=== PATIENT | female | born 1955 | race African-American/Black ===

== ENCOUNTER → 2016-12-02 | Outpatient (CLI) | payer OTHER ==
[2016-12-02 17:51] LABS: ANION GAP 10 (5-19); BLOOD UREA NITROGEN 30 mg/dL (7-20); CALCIUM 9.7 mg/dL (8.4-10.2); CARBON DIOXIDE 27 mmol/L (22-30); CHLORIDE 101 mmol/L (98-107); CREATININE RESULT 2.76 mg/dL (0.52-1.25); GLUCOSE 71 mg/dL (75-110); POTASSIUM 5.1 mmol/L (3.6-5.0); SODIUM 138.3 mmol/L (137-145)
== END ==
LOC: OD 16:30
PROVIDERS: ATTEND Internal Medicine Nephrology
DX: N18.4 Chronic kidney disease, stage 4 (severe) (principal)
CPT/HCPCS: 36415; 80048

== ENCOUNTER → 2017-03-19 | Outpatient (CLI) | payer OTHER ==
[2017-03-19 17:48] LABS: ABSOLUTE EOSINOPHILS # (AUTO) 0.3 10^3/uL (0.0-0.6); ABSOLUTE MONOCYTES (AUTO) 0.5 10^3/uL (0.1-1.4); BASOPHILS % (AUTO) 0.4 % (0-2); EOSINOPHILS % (AUTO) 4.9 % (0-6); HEMATOCRIT 36.3 % (36.0-47.0); HEMOGLOBIN 11.9 g/dL (12.0-15.5); HGB HCT DIFFERENCE -0.6; LYMPHOCYTES % (AUTO) 28.9 % (13-45); MEAN CORPUSCULAR HEMOGLOBIN 28.8 pg (27.0-33.4); MEAN CORPUSCULAR HGB CONC 32.7 g/dL (32.0-36.0); MEAN CORPUSCULAR VOLUME 88 fl (80-97); MONOCYTES % (AUTO) 7.8 % (3-13); RED BLOOD COUNT 4.12 10^6/uL (3.72-5.28); RED CELL DISTRIBUTION WIDTH 13.5 % (11.5-14.0); WHITE BLOOD COUNT 6.8 10^3/uL (4.0-10.5)
[2017-03-19 18:10] LABS: ANION GAP 9 (5-19); BLOOD UREA NITROGEN 33 mg/dL (7-20); CALCIUM 9.3 mg/dL (8.4-10.2); CARBON DIOXIDE 29 mmol/L (22-30); CHLORIDE 100 mmol/L (98-107); CREATININE RESULT 3.21 mg/dL (0.52-1.25); GLUCOSE 61 mg/dL (75-110); PHOSPHORUS 3.7 mg/dL (2.5-4.5); POTASSIUM 4.1 mmol/L (3.6-5.0); SODIUM 138.4 mmol/L (137-145)
[2017-03-21 10:37] LABS: CREATININE URINE 144.8 mg/dL (Not Estab.)
[2017-03-21 12:57] LABS: VITAMIN D 25-HYDROXY 18.2 ng/mL (30.0-100.0)
== END ==
LOC: OD 17:06
PROVIDERS: ATTEND Internal Medicine Nephrology
DX: I12.9 Hypertensive chronic kidney disease with stage 1 through stage 4 chronic kidney disease, or unspecified chronic kidney disease (principal); N18.4 Chronic kidney disease, stage 4 (severe); D63.1 Anemia in chronic kidney disease; N25.81 Secondary hyperparathyroidism of renal origin
CPT/HCPCS: 36415; 80048; 82040; 82043; 82306; 82570; 83970; 84100; 85025

== ENCOUNTER → 2017-12-17 | Outpatient (CLI) | payer OTHER ==
[2017-12-17 17:06] LABS: ABSOLUTE BASOPHILS # (AUTO) 0.1 10^3/uL (0.0-0.2); ABSOLUTE EOSINOPHILS # (AUTO) 0.2 10^3/uL (0.0-0.6); ABSOLUTE MONOCYTES (AUTO) 0.5 10^3/uL (0.1-1.4); ABSOLUTE NEUT (AUTO) 4.6 10^3/uL (1.7-8.2); BASOPHILS % (AUTO) 0.8 % (0-2); HEMATOCRIT 38.1 % (36.0-47.0); HEMOGLOBIN 12.4 g/dL (12.0-15.5); LYMPHOCYTES % (AUTO) 26.7 % (13-45); MEAN CORPUSCULAR HGB CONC 32.4 g/dL (32.0-36.0); MEAN CORPUSCULAR VOLUME 90 fl (80-97); MONOCYTES % (AUTO) 6.8 % (3-13); PLATELET COUNT 238 10^3/uL (150-450); RED BLOOD COUNT 4.26 10^6/uL (3.72-5.28); RED CELL DISTRIBUTION WIDTH 13.8 % (11.5-14.0); SEGMENTED NEUTROPHILS % (AUTO) 62.7 % (42-78); TOTAL CELLS COUNTED % (AUTO) 100 %; WHITE BLOOD COUNT 7.3 10^3/uL (4.0-10.5)
[2017-12-17 17:27] LABS: ALBUMIN 4.7 g/dL (3.5-5.0); ANION GAP 12 (5-19); BLOOD UREA NITROGEN 34 mg/dL (7-20); CALCIUM 9.8 mg/dL (8.4-10.2); CARBON DIOXIDE 24 mmol/L (22-30); CHLORIDE 107 mmol/L (98-107); GLUCOSE 161 mg/dL (75-110); PHOSPHORUS 4.1 mg/dL (2.5-4.5); POTASSIUM 4.4 mmol/L (3.6-5.0)
[2017-12-17 17:44] LABS: APPEARANCE,URINE CLEAR; BILIRUBIN,URINE NEGATIVE (NEGATIVE); COLOR,URINE YELLOW; GLUCOSE, URINE NEGATIVE (NEGATIVE); KETONES,URINE NEGATIVE (NEGATIVE); LEUKOCYTE ESTERASE,URINE NEGATIVE (NEGATIVE); NITRITE,URINE NEGATIVE (NEGATIVE); PROTEIN,URINE 30 mg/dL (NEGATIVE); URINE SPECIFIC GRAVITY 1.015; UROBILINOGEN,URINE NEGATIVE mg/dL (<2.0)
[2017-12-19 12:37] LABS: CREATININE URINE 125.9 mg/dL (Not Estab.); MICROALBUMIN URINE 122.9 ug/mL (Not Estab.)
== END ==
LOC: OD 16:19
PROVIDERS: ATTEND Internal Medicine Nephrology
DX: N18.4 Chronic kidney disease, stage 4 (severe) (principal); D63.1 Anemia in chronic kidney disease; E55.9 Vitamin D deficiency, unspecified; N25.81 Secondary hyperparathyroidism of renal origin
CPT/HCPCS: 36415; 80048; 81001; 82040; 82043; 82306; 82570; 83970; 84100; 85025

== ENCOUNTER 2018-02-14 21:07 | Inpatient (IN) | payer OTHER ==
[~2018-02-14 21:07] MED LIST: IPRATROPIUM/ALBUTEROL 0.5-2.5 MG/3 ML AMPUL NEB SCH
[2018-02-14] MEDS ORDERED: MAGNESIUM SULFATE/D5W 1 GM/100 ML RTUPB IV ONE (21:12)
[2018-02-14] MEDS ORDERED: ALBUTEROL SULFATE 0.083% NEB 2.5 MG/3 ML AMPUL NEB ONE (21:21)
[2018-02-14] MEDS ORDERED: DOXYCYCLINE HYCLATE 100 MG TABLET PO ONE (21:22)
--- NOTE | 2018-02-14 21:23 | ER Document Report ---
ED General - General Chief Complaint: Respiratory Distress Stated Complaint: TROUBLE BREATHING Time Seen by Provider: 02/14/18 21:20 Notes: Patient is a 63-year-old female with a past medical history of COPD, chronic kidney disease, ongoing tobacco abuse who presents with 2 weeks of progressively worsening cough and shortness of breath. She states that she came to the emergency department today because her daughter insisted. She does arrive by EMS. EMS reports when they arrived the patient was saturating 90% on room air and had coarse wheezing in all lung lockett. Patient reports that she has been trying whij-hyx-obigqbm medications without any relief but does note that she had some improvement after receiving nebulizers and steroids from EMS. She has exertion worsens her symptoms. She denies any history of similar symptoms in the past. No known sick contacts. She reports that she has had subjective fever at home but has not recorded a fever. She has not seen her primary care doctor regarding today's concerns. She has never been dialysis dependent in the past. TRAVEL OUTSIDE OF THE [place] IN LAST 30 DAYS: No - Related Data Allergies/Adverse Reactions: No Known Allergies Allergy (Unverified 01/21/11 22:02) Past Medical History - General Information source: Patient, Relative - Social History Smoking Status: Current Every Day Smoker Cigarette use (# per day): Yes - 20 Smoking Education Provided: Yes - Smoking cessation counseling was provided for 4 minutes at the bedside Frequency of alcohol use: None Drug Abuse: None Lives with: Family Family History: Reviewed & Not Pertinent Neurological Medical History: Denies: Hx Seizures Renal/ Medical History: Reports: Hx Renal Insufficiency Past Surgical History: Reports: Hx Oral Surgery - Upper teeth extracted . Denies: Hx Hysterectomy - Immunizations Hx Diphtheria, Pertussis, Tetanus Vaccination: Yes Review of Systems - Review of Systems Notes: Constitutional: Positive for subjective fever HENT: Negative for sore throat. Eyes: Negative for visual changes. Cardiovascular: Negative for chest pain. Respiratory: Positive for shortness of breath. Gastrointestinal: Negative for abdominal pain, vomiting or diarrhea. Genitourinary: Negative for dysuria. Musculoskeletal: Negative for back pain. Skin: Negative for rash. Neurological: Negative for headaches, weakness or numbness. 10 point ROS negative except as marked above and in HPI. Physical Exam - Vital signs Interpretation: Hypoxic, Tachypneic Notes: PHYSICAL EXAMINATION: GENERAL: Appears moderately uncomfortable but in no acute distress. HEAD: Atraumatic, normocephalic. EYES: Pupils equal round and reactive to light, extraocular movements intact, sclera anicteric, conjunctiva are normal. ENT: nares patent, oropharynx clear without exudates. Mildly dry mucous membranes. NECK: Normal range of motion, supple without lymphadenopathy LUNGS: Diminished breath sounds at the bilateral bases. Faint expiratory wheezing in all lung lockett. HEART: Regular rate and rhythm without murmurs ABDOMEN: Soft, nontender, normoactive bowel sounds. No guarding, no rebound. No masses appreciated. EXTREMITIES: Normal range of motion, no pitting or edema. No cyanosis. NEUROLOGICAL: No focal neurological deficits. Moves all extremities spontaneously and on command. PSYCH: Normal mood, normal affect. SKIN: Warm, Dry, normal turgor, no rashes or lesions noted. Course - Re-evaluation Re-evalutation: 02/14/18 21:22 Patient presents with wheezing, coughing, and sputum production, and subjective fevers at home. Patient was 90% on room air when EMS got to her although she has improved to 90-94% on room air after receiving 3 do nebulizers prior to arrival as well as Solu-Medrol. At the time of my assessment the patient has mildly diminished air movement at the bases bilaterally, mild wheezing. She is having active coughing with production of sputum. The remainder of her vitals remain within acceptable limits. Laboratories however demonstrate a marked leukocytosis as well as market worsening of her baseline chronic kidney disease. Renal function appears to be most consistent with prerenal azotemia with associated underlying chronic kidney disease. Dr. Juarez is available for consultation in the morning and I have verified this with the lumber piler operator business support professional. Patient's chest x-ray also shows a left lower lobe pneumonia. Patient was initially given oral doxycycline as I was hopeful that she could be able to be discharged but given her persistent hypoxia as well as marked worsening of her renal function she has been started on IV levofloxacin. Patient is also received 2 g of IV magnesium. I will discuss with the hospitalist for admission. - Laboratory Result Diagrams: 02/14/18 21:10 02/14/18 21:10 Laboratory results interpreted by me: 02/14/18 02/14/18 21:10 21:10 WBC 22.9 H Plt Count 502 H Seg Neuts % (Manual) 85 H Band Neutrophils % 1 L Lymphocytes % (Manual) 9 L Abs Neuts (Manual) 19.7 H Sodium 134.0 L Chloride 89 L BUN 101 H Creatinine 5.22 H Est GFR ( Amer) 10 L Est GFR (Non-Af Amer) 8 L Glucose 176 H - Diagnostic Test Radiology reviewed: Image reviewed, Reports reviewed Radiology results interpreted by me: 02/15/18 01:16 Chest x-ray: Left lower lobe pneumonia and COPD Discharge - Discharge Clinical Impression: Hypoxemia, Shortness of breath Pneumonia Qualifiers: Pneumonia type: due to unspecified organism Laterality: left Lung location: unspecified part of lung Qualified Code(s): J18.9 - Pneumonia, unspecified organism Cpzjl-da-cffustb kidney injury Qualifiers: Acute renal failure type: unspecified Chronic kidney disease stage: stage 4 ( severe) Qualified Code(s): N17.9 - Acute kidney failure, unspecified; N18.4 - Chronic kidney disease, stage 4 (severe); N18.4 - Chronic kidney disease, stage 4 (severe); N18.4 - Chronic kidney disease, stage 4 (severe); N18.4 - Chronic kidney disease, stage 4 (severe) Condition: Fair Disposition: ADMITTED INPATIENT Admitting Provider: Hospitalist Unit Admitted: Medical Floor
[2018-02-14 21:27] LABS: HEMATOCRIT 42.1 % (36.0-47.0); MEAN CORPUSCULAR HEMOGLOBIN 28.4 pg (27.0-33.4); MEAN CORPUSCULAR HGB CONC 33.2 g/dL (32.0-36.0); MEAN CORPUSCULAR VOLUME 86 fl (80-97); PLATELET COUNT 502 10^3/uL (150-450); RED BLOOD COUNT 4.92 10^6/uL (3.72-5.28); WHITE BLOOD COUNT 22.9 10^3/uL (4.0-10.5)
[2018-02-14 21:29] LABS: VENOUS BLOOD BASE EXCESS 2.8 mmol/L; VENOUS BLOOD HCO3 28.6 mmol/L (20-32); VENOUS BLOOD PCO2 48.3 mmHg (35-63); VENOUS BLOOD PH 7.39 (7.30-7.42)
[2018-02-14] MEDS: MAGNESIUM SULFATE/D5W 1 GM/100 ML RTUPB IV SCH ×3 (21:39→23:24)
[2018-02-14 21:44] LABS: ANION GAP 15 (5-19); BLOOD UREA NITROGEN 101 mg/dL (7-20); CALCIUM 9.7 mg/dL (8.4-10.2); CARBON DIOXIDE 30 mmol/L (22-30); CHLORIDE 89 mmol/L (98-107); GLUCOSE 176 mg/dL (75-110); POTASSIUM 4.5 mmol/L (3.6-5.0)
[2018-02-14 21:50] LABS: ABSOLUTE LYMPHOCYTES# (MANUAL) 2.1 10^3/uL (0.5-4.7); ABSOLUTE MONOCYTES # (MANUAL) 0.9 10^3/uL (0.1-1.4); ABSOLUTE NEUTROPHILS# (MANUAL) 19.7 10^3/uL (1.7-8.2); BAND NEUTROPHILS % (MANUAL) 1 % (3-5); BASOPHILS % (MANUAL) 0 % (0-2); EOSINOPHILS % (MANUAL) 1 % (0-6); LYMPHOCYTES % (MANUAL) 9 % (13-45); MONOCYTES % (MANUAL) 4 % (3-13); PLATELET COMMENT INCREASED; SEGMENTED NEUTROPHILS % (MAN) 85 % (42-78); TOTAL CELLS COUNTED 100
[2018-02-14 21:52] LABS: OVALOCYTES SLIGHT; POIKILOCYTOSIS SLIGHT; TOXIC GRANULATION SLIGHT; TOXIC VACUOLATION PRESENT
--- NOTE | 2018-02-14 22:15 | RADIOLOGY REPORT (SQ) ---
EXAM DESCRIPTION: CHEST SINGLE VIEW COMPLETED DATE/TIME: 02/14/2018 10:07 pm REASON FOR STUDY: cough, sob COMPARISON: 2012. NUMBER OF VIEWS: One view. TECHNIQUE: Single frontal radiographic view of the chest acquired. LIMITATIONS: None. FINDINGS: LUNGS AND PLEURA: Hyperinflated with flattening of the diaphragm. Probable scarring in th e lung bases. Changes consistent with COPD. Patchy area of infiltrate in the left mid lung zone rita picious for pneumonia. MEDIASTINUM AND HILAR STRUCTURES: No masses. Contour normal. HEART AND VASCULAR STRUCTURES: Heart normal in size. Normal vasculature. BONES: No acute findings. HARDWARE: None in the chest. OTHER: No other significant finding. IMPRESSION: 1. COPD. 2. Left pneumonia. Surveillance radiographs to document clearance with kwame tment recommended. TECHNICAL DOCUMENTATION: JOB ID: [id number] [employer]- All Rights Reserved Reading location - IP/workstation name: [email or web address]
[2018-02-14] MEDS ORDERED: LEVOFLOXACIN 750 MG/D5W RTU 750 MG/150 ML RTUPB IV ONE (23:06)
[2018-02-14] MEDS ORDERED: NORMAL SALINE 1000 ML 1,000 ML IV ONE (23:06)
[2018-02-14] MEDS ORDERED: ACETAMINOPHEN 325 MG TABLET PO PRN (23:39)
[2018-02-14] MEDS ORDERED: NORMAL SALINE 1000 ML 1,000 ML IV PRN (23:43)
--- NOTE | 2018-02-15 00:09 | PDOC H&P ---
History of Present Illness History of Present Illness: NAIDA MARQUEZ is a 63 year old female patient who has been in her usual baseline state of up until 7 days when she started to have shortness of place, wheezing and cough productive of initially yellowish sputum. Patient instead of seeking medical help, has been medicating herself with over-the- counter medications to no avail. Patient is a known case of CKD and her creatinine was 2.86 in December of this year but today it jumped up to 5.22 and her BUN is 101. She has also white cell count of 23,000 and chest x-ray reported as patchy area of infiltrate left midlung zone suspicious for pneumonia. Patient brought by EMS who found her to have O2 saturation of 90% on room air and after she got Solu-Medrol and DuoNeb at all saturation increased to 94%. She denies chest pain, palpitation, nausea, vomiting, abdominal pain, diarrhea or urinary complaints. No headache, dizziness, change in visual status or any seizure activity. Past Medical History Cardiac Medical History: Reports: Hypertension Neurological Medical History: Denies: Seizures Renal/ History Note: CKD Past Surgical History Past Surgical History: Reports: None Social History Smoking Status: Current Every Day Smoker Frequency of Alcohol Use: None Drugs: None - Advance Directive Resuscitation Status: Full Code Family History Family History: Reviewed & Not Pertinent, DM, Hypertension Parental Family History Reviewed: Yes Children Family History Reviewed: Yes Sibling(s) Family History Reviewed.: Yes Medication/Allergy Home Medications: Atenolol 100 mg PO DAILY 10/09/13 Hydrocodone/Chlorphen P-Stirex [Tussionex Pennkinetic Susp] 5 ml PO BID #250 ml 10/09/13 Losartan/Hydrochlorothiazide [Hyzaar 50-12.5 Tablet] 1 each PO DAILY 10/09/13 Ondansetron [Zofran Odt 4 mg Tablet] 1 tab PO Q6H #15 tab.rapdis 10/09/13 Penicillin V Potassium [Penicillin Vk 500 mg Tablet] 500 mg PO QID 10/09/13 Promethazine HCl 25 mg PO Q6H PRN 10/09/13 Promethazine HCl [Phenergan 25 mg Tablet] 25 mg PO Q6H PRN #15 tablet 10/09/13 Allergies/Adverse Reactions: No Known Allergies Allergy (Unverified 01/21/11 22:02) Review of Systems Constitutional: PRESENT: as per HPI Ears: PRESENT: as per HPI Cardiovascular: PRESENT: as per HPI Respiratory: PRESENT: as per HPI Gastrointestinal: PRESENT: as per HPI Neurological: PRESENT: as per HPI Results Laboratory Results: 02/14/18 21:10 02/14/18 21:10 02/14/18 02/14/18 02/14/18 21:10 21:10 21:10 WBC 22.9 H RBC 4.92 Hgb 14.0 Hct 42.1 MCV 86 MCH 28.4 MCHC 33.2 RDW 13.0 Plt Count 502 H Seg Neutrophils % Not Reportable Lymphocytes % Not Reportable Monocytes % Not Reportable Eosinophils % Not Reportable Basophils % Not Reportable Absolute Neutrophils Not Reportable Absolute Lymphocytes Not Reportable Absolute Monocytes Not Reportable Absolute Eosinophils Not Reportable Absolute Basophils Not Reportable VBG pH 7.39 VBG pCO2 48.3 VBG HCO3 28.6 VBG Base Excess 2.8 Sodium 134.0 L Potassium 4.5 Chloride 89 L Carbon Dioxide 30 Anion Gap 15 BUN 101 H Creatinine 5.22 H Est GFR ( Amer) 10 L Est GFR (Non-Af Amer) 8 L Glucose 176 H Calcium 9.7 Impressions: Chest X-Ray 02/14/18 21:21 IMPRESSION: 1. COPD. 2. Left pneumonia. Surveillance radiographs to document clearance with treatment recommended. Assessment & Plan - Diagnosis (1) Jlgye-do-gtowkkz kidney injury Qualifiers: Chronic kidney disease stage: stage 4 (severe) Is this a current diagnosis for this admission?: Yes Plan: We will cautiously hydrate her and consult nephrology to be seen tomorrow morning. (2) Pneumonia Qualifiers: Pneumonia type: due to unspecified organism Laterality: left Is this a current diagnosis for this admission?: Yes Plan: Patient has been started on Rocephin and doxycycline (3) Hypertension Qualifiers: Hypertension type: essential hypertension Qualified Code(s): I10 - Essential (primary) hypertension Is this a current diagnosis for this admission?: Yes Plan: Continue home medications - Time Time Spent: 30 to 50 Minutes - Inpatient Certification Medical Necessity: Need For IV Fluids, Need for IV Antibiotics
[2018-02-15] MEDS: IPRATROPIUM/ALBUTEROL 0.5-2.5 MG/3 ML AMPUL NEB SCH ×6 (01:29→21:01)
[2018-02-15] MEDS: METHYLPREDNISOLONE INJ 40 MG/1 ML SDV IV SCH ×2 (05:27)
[2018-02-15] MEDS: HEPARIN SOD (PORCINE) 5,000 UNIT/ML 1 ML SYRINGE SUBCUT SCH ×3 (05:28→21:16)
[2018-02-15 06:16] LABS: HEMOGLOBIN 12.2 g/dL (12.0-15.5); MEAN CORPUSCULAR HEMOGLOBIN 28.4 pg (27.0-33.4); MEAN CORPUSCULAR HGB CONC 32.9 g/dL (32.0-36.0); MEAN CORPUSCULAR VOLUME 87 fl (80-97); PLATELET COUNT 344 10^3/uL (150-450); RED BLOOD COUNT 4.28 10^6/uL (3.72-5.28); RED CELL DISTRIBUTION WIDTH 12.9 % (11.5-14.0); WHITE BLOOD COUNT 21.7 10^3/uL (4.0-10.5)
[2018-02-15 06:28] LABS: BLOOD UREA NITROGEN 96 mg/dL (7-20); CALCIUM 9.1 mg/dL (8.4-10.2); PHOSPHORUS 4.3 mg/dL (2.5-4.5); POTASSIUM 4.4 mmol/L (3.6-5.0)
[2018-02-15 06:33] LABS: ANION GAP 19 (5-19); CARBON DIOXIDE 21 mmol/L (22-30); CHLORIDE 90 mmol/L (98-107); SODIUM 130.4 mmol/L (137-145)
[2018-02-15 06:39] LABS: ABSOLUTE LYMPHOCYTES# (MANUAL) 0.4 10^3/uL (0.5-4.7); ABSOLUTE NEUTROPHILS# (MANUAL) 21.3 10^3/uL (1.7-8.2); BAND NEUTROPHILS % (MANUAL) 1 % (3-5); BASOPHILS % (MANUAL) 0 % (0-2); EOSINOPHILS % (MANUAL) 0 % (0-6); LYMPHOCYTES % (MANUAL) 2 % (13-45); MONOCYTES % (MANUAL) 0 % (3-13); SEGMENTED NEUTROPHILS % (MAN) 97 % (42-78); TOTAL CELLS COUNTED 100
[2018-02-15 06:41] LABS: OVALOCYTES SLIGHT; PLATELET COMMENT ADEQUATE; POIKILOCYTOSIS SLIGHT; TEAR DROP CELLS SLIGHT
[2018-02-15 06:46] LABS: GLUCOSE 503 mg/dL (75-110)
[2018-02-15] MEDS: CEFTRIAXONE SODIUM 1,000 MG in DEXTROSE 5%-WATER 50 ML IV SCH (09:49)
[2018-02-15] MEDS ORDERED: DEXTROSE 50%-WATER 25 GM/50 ML DISP.SYRIN IV PRN ×2 (09:51)
[2018-02-15] MEDS ORDERED: GLUCAGON,HUMAN RECOMB 1 MG INJ IM PRN (09:51)
[2018-02-15] MEDS ORDERED: DEXTROSE 40% GEL 15 GM TUBE PO PRN ×2 (09:51)
[2018-02-15] MEDS ORDERED: ALBUTEROL SULFATE 0.083% NEB 2.5 MG/3 ML AMPUL NEB PRN (09:53)
[2018-02-15] MEDS ORDERED: ONDANSETRON HCL INJ/PF 4 MG/2 ML SDV IV PRN (09:54)
[2018-02-15] MEDS ORDERED: NORMAL SALINE 1000 ML 1,000 ML IV PRN (09:54)
[2018-02-15] MEDS ORDERED: CEFTRIAXONE 1 GM/D5W RTU 1 GM/50 ML RTUPB IV SCH (10:00)
[2018-02-15] MEDS: DOXYCYCLINE HYCLATE 100 MG in DEXTROSE 5%-WATER 250 ML IV SCH ×2 (11:01→21:09)
[2018-02-15] MEDS: NICOTINE 14 MG/24 HR PATCH.TD24 TD SCH (11:02)
--- NOTE | 2018-02-15 13:20 | PDOC PROGRESS REPORT ---
Subjective Progress Note for:: 02/15/18 Subjective:: Patient refers that she is doing a lot better when compared to admission. Review of system All organ systems evaluated and negative except as in subjective All significant diagnostics and laboratories have been reviewed Reason For Visit: ACUTE ON CHRONIC KIDNEY FAILURE,PNEUMONIA Physical Exam Vital Signs: Temp Pulse Resp BP Pulse Ox 98.3 F 72 18 109/66 98 02/15/18 07:22 02/15/18 08:06 02/15/18 08:06 02/15/18 07:22 02/15/18 08:06 Intake & Output 02/14/18 02/15/18 02/16/18 06:59 06:59 06:59 Intake Total 125 Output Total 0 Balance 125 Weight 50.1 kg General appearance: PRESENT: no acute distress, cooperative, thin Head exam: PRESENT: atraumatic, normocephalic Eye exam: PRESENT: conjunctiva pink, EOMI, PERRLA Ear exam: PRESENT: normal external ear exam Mouth exam: PRESENT: moist Neck exam: PRESENT: full ROM. ABSENT: JVD, lymphadenopathy, tenderness Respiratory exam: PRESENT: crackles Cardiovascular exam: PRESENT: RRR. ABSENT: diastolic murmur, systolic murmur Vascular exam: PRESENT: normal capillary refill GI/Abdominal exam: PRESENT: normal bowel sounds, soft. ABSENT: tenderness Extremities exam: PRESENT: full ROM. ABSENT: pedal edema Musculoskeletal exam: PRESENT: ambulatory Neurological exam: PRESENT: alert, awake, oriented to person, oriented to place , oriented to time, oriented to situation, CN II-XII grossly intact Skin exam: PRESENT: intact, normal color Results Laboratory Results: 02/15/18 05:40 02/15/18 05:40 02/15/18 02/15/18 05:40 05:40 WBC 21.7 H RBC 4.28 Hgb 12.2 Hct 37.0 MCV 87 MCH 28.4 MCHC 32.9 RDW 12.9 Plt Count 344 Seg Neutrophils % Not Reportable Lymphocytes % Not Reportable Monocytes % Not Reportable Eosinophils % Not Reportable Basophils % Not Reportable Absolute Neutrophils Not Reportable Absolute Lymphocytes Not Reportable Absolute Monocytes Not Reportable Absolute Eosinophils Not Reportable Absolute Basophils Not Reportable Sodium 130.4 L Potassium 4.4 Chloride 90 L Carbon Dioxide 21 L Anion Gap 19 BUN 96 H Creatinine 4.61 H Est GFR ( Amer) 12 L Est GFR (Non-Af Amer) 10 L Glucose 503 H* Calcium 9.1 Phosphorus 4.3 Magnesium 3.1 H Impressions: Chest X-Ray 02/14/18 21:21 IMPRESSION: 1. COPD. 2. Left pneumonia. Surveillance radiographs to document clearance with treatment recommended. Assessment & Plan - Diagnosis (1) Pneumonia Qualifiers: Pneumonia type: due to unspecified organism Laterality: left Lung location: lower lobe of lung Qualified Code(s): J18.1 - Lobar pneumonia, unspecified organism Is this a current diagnosis for this admission?: Yes Plan: Continue present management (2) Gqeub-ci-flvqtgd kidney injury Qualifiers: Acute renal failure type: unspecified Chronic kidney disease stage: stage 4 (severe) Qualified Code(s): N17.9 - Acute kidney failure, unspecified; N18.4 - Chronic kidney disease, stage 4 (severe); N18.4 - Chronic kidney disease , stage 4 (severe); N18.4 - Chronic kidney disease, stage 4 (severe); N18.4 - Chronic kidney disease, stage 4 (severe) Is this a current diagnosis for this admission?: Yes Plan: Continue IV fluids. Order renal sonogram (3) COPD (chronic obstructive pulmonary disease) Is this a current diagnosis for this admission?: Yes Plan: Order DuoNeb's, Mucinex and discontinue steroids due to hyperglycemia (4) Tobacco abuse Is this a current diagnosis for this admission?: Yes Plan: Order nicotine patch. Patient educated about quitting (5) Hyperglycemia Is this a current diagnosis for this admission?: Yes Plan: Discontinue IV steroids. Order hemoglobin A1c in a.m.. To place patient on Humalog sliding scale with bedside glucose before meals and at bedtime - Time Time Spent with patient: 15-24 minutes Medications reviewed and adjusted accordingly: Yes Anticipated discharge: Home Within: within 72 hours - Inpatient Certification Based on my medical assessment, after consideration of the patient's comorbidities, presenting symptoms, or acuity I expect that the services needed warrant INPATIENT care.: Yes I certify that my determination is in accordance with my understanding of Medicare's requirements for reasonable and necessary INPATIENT services [42 CFR 412.3e].: Yes Medical Necessity: Need Close Monitoring Due to Risk of Patient Decompensation, Need For IV Fluids, Need for Nebulizer Therapy and Monitoring of Response
[2018-02-15] MEDS: ACETAMINOPHEN 325 MG TABLET PO PRN ×2 (14:47→22:37)
[2018-02-15] MEDS: INSULIN LISPRO 100 UNIT/ML 3 ML VIAL SUBCUT PRN ×2 (15:25→18:32)
--- NOTE | 2018-02-15 17:41 | PDOC CONSULTATION ---
Consultation Consult Date: 02/15/18 Attending physician:: MYESHA CHRISTINA Consult reason:: I was asked to see the patient because of acute worsening of kidney function in a patient with known chronic kidney disease. History of Present Illness Admission Date/PCP: 02/15/18 01:25 History of Present Illness: NAIDA MARQUEZ is a 63 year old female known to me with history of chronic kidney disease stage IV secondary to hypertensive nephrosclerosis, hypertension , and vitamin D deficiency who presented yesterday because of 1-2 week history of cough productive of yellow phlegm shortness of breath and wheezing. Patient said that she just retired on February 07 and while fixing her custodial papers couple weeks ago she just started not feeling good and he started to have the above symptoms. She said she feels happened cold and has some chills but not sure if she has had fever. Her oral intake was admittedly decrease and she admits not eating solid food and not drinking much probably less than 30 ounces a day. For the past 3 days she also has some nausea and vomiting but denies any diarrhea and her abdominal pain. Last night her daughter brought her to the emergency room. In the emergency room she was found to have elevated BUN of 109 and a creatinine of 5.22. Chest x-ray shows findings showing possible pneumonia. She was given IV fluid hydration for a total of 2 L and is currently still receiving normal saline at 150 mL an hour. She also received antibiotics with IV Levaquin and currently now on IV doxycycline. He was also given some doses of Solu-Medrol which made her blood sugar go up to 503. Patient is never known to be diabetic. Her blood pressure is relatively low compared to her usual baseline blood pressures which most of the time can actually be elevated. Patient denies any other problems with urination and did not notice her urine output to be declining. Today her BUN is better at 96 and creatinine is slightly lower at 4.61 with estimated GFR of throughout. Her baseline BUN is been in the 30s and her baseline creatinine is anywhere between 2.5-2.8 for the last 6 months at least with estimated GFR of 20-21. Currently she is still coughing and not feeling good although a little bit better than when she came in. She is eating a little bit but still has no appetite. She claims that she is making good amount of urine. 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 Lives with: Family Smoking Status: Current Every Day Smoker Frequency of Alcohol Use: None Hx Recreational Drug Use: No Drugs: None Hx Prescription Drug Abuse: No - Advance Directive Resuscitation Status: Full Code Family History Family History: DM - On, Hypertension - Mother, brother, sister, Other - Leukemia in her maternal grandmother Parental Family History Reviewed: Yes Children Family History Reviewed: NA Sibling(s) Family History Reviewed.: Yes Medication/Allergy Home Medications: Aspirin [Aspirin 325 mg Tablet] 325 mg PO DAILY@49902/15/18 Atenolol [Tenormin 100 mg Tablet] 100 mg PO DAILY@49902/15/18 Ergocalciferol (Vitamin D2) [Drisdol 50,000 unit (1.25MG) Capsule] 50,000 unit PO SA@0800 02/15/18 Losartan/Hydrochlorothiazide [Hyzaar 100-12.5 Tablet] 1 tab PO DAILY@499 Allergies/Adverse Reactions: No Known Allergies Allergy (Unverified 01/21/11 22:02) Review of Systems All systems: reviewed and no additional remarkable complaints except as stated Review of Systems: Constitutional: ABSENT: Fever(s), headache(s), weight gain, weight loss; admits feeling weak, and admits chills Eyes: ABSENT: visual disturbances Ears: ABSENT: hearing changes Cardiovascular: ABSENT: chest pain, dyspnea on exertion, edema, orthropnea, palpitations Respiratory: ABSENT: Hemoptysis; admits productive cough, wheezing and shortness of breath Gastrointestinal: ABSENT: abdominal pain, constipation, diarrhea, hematemesis, hematochezia; admits nausea, vomiting Genitourinary: ABSENT: dysuria, hematuria Musculoskeletal: ABSENT: joint swelling Integumentary: ABSENT: rash, wounds Neurological: ABSENT: abnormal gait, abnormal speech, confusion, dizziness, focal weakness, numbness, syncope Psychiatric: ABSENT: anxiety, depression Endocrine: ABSENT: cold intolerance, heat intolerance, polydipsia, polyuria Hematologic/Lymphatic: ABSENT: easy bleeding, easy bruising, lymphadenopathy Physical Exam Vital Signs: Temp Pulse Resp BP Pulse Ox 98.0 F 64 18 118/70 95 02/15/18 16:27 02/15/18 16:27 02/15/18 16:19 02/15/18 16:27 02/15/18 16:27 Intake & Output 02/14/18 02/15/18 02/16/18 06:59 06:59 06:59 Intake Total 125 250 Output Total 0 Balance 125 250 Weight 50.1 kg Exam: General appearance: no acute distress, cooperative, well-developed, well- nourished Head exam: PRESENT: atraumatic, normocephalic Eye exam: PRESENT: Conjunctiva [place], EOMI, PERRLA. ABSENT: conjunctival injection, scleral icterus Mouth exam: PRESENT: moist, neck supple, tongue midline Neck exam: PRESENT: full ROM. ABSENT: carotid bruit, JVD, lymphadenopathy, thyromegaly Respiratory exam: PRESENT: She has rhonchi to auscultation bilaterally. Positive bibasilar crackles ABSENT: Stridor, wheezes Cardiovascular exam: PRESENT: RRR, +S1, +S2. ABSENT: systolic murmur Pulses: PRESENT: normal radial pulses, normal dorsalis pedis pulses GI/Abdominal exam: PRESENT: normal bowel sounds, soft. ABSENT: guarding, mass, tenderness Rectal exam: deferred Extremities exam: PRESENT: full ROM. ABSENT: calf tenderness, pedal edema Musculoskeletal: PRESENT: full ROM. ABSENT: deformity Neurological exam: PRESENT: alert, Awake, Oriented to person, Oriented to place , Oriented to time, reflexes normal, CN II-XII grossly intact. ABSENT: motor sensory deficit Psychiatric exam: PRESENT: appropriate affect, normal mood. ABSENT: homicidal ideation, suicidal ideation Skin exam: PRESENT: intact, dry, warm. ABSENT: rash Results Laboratory Results: 02/15/18 05:40 02/15/18 05:40 02/15/18 02/15/18 05:40 05:40 WBC 21.7 H RBC 4.28 Hgb 12.2 Hct 37.0 MCV 87 MCH 28.4 MCHC 32.9 RDW 12.9 Plt Count 344 Seg Neutrophils % Not Reportable Lymphocytes % Not Reportable Monocytes % Not Reportable Eosinophils % Not Reportable Basophils % Not Reportable Absolute Neutrophils Not Reportable Absolute Lymphocytes Not Reportable Absolute Monocytes Not Reportable Absolute Eosinophils Not Reportable Absolute Basophils Not Reportable Sodium 130.4 L Potassium 4.4 Chloride 90 L Carbon Dioxide 21 L Anion Gap 19 BUN 96 H Creatinine 4.61 H Est GFR ( Amer) 12 L Est GFR (Non-Af Amer) 10 L Glucose 503 H* Calcium 9.1 Phosphorus 4.3 Magnesium 3.1 H Impressions: Chest X-Ray 02/14/18 21:21 IMPRESSION: 1. COPD. 2. Left pneumonia. Surveillance radiographs to document clearance with treatment recommended. Assessment & Plan - Diagnosis (1) [id number] kidney injury Qualifiers: Acute renal failure type: unspecified Chronic kidney disease stage: stage 4 (severe) Qualified Code(s): N17.9 - Acute kidney failure, unspecified; N18.4 - Chronic kidney disease, stage 4 (severe); N18.4 - Chronic kidney disease , stage 4 (severe); N18.4 - Chronic kidney disease, stage 4 (severe); N18.4 - Chronic kidney disease, stage 4 (severe) Is this a current diagnosis for this admission?: Yes Plan: This most likely secondary to acute prerenal azotemia secondary to poor oral intake with dehydration for 1-2 weeks. Kidney function seems to be slowly improving with IV fluid hydration. Patient is nonoliguric. Continue to monitor kidney function daily. Avoid nephrotoxic medications and adjust antibiotics according to kidney function. Kidney ultrasound was ordered and was pending. I will check urinalysis and intake and output. (2) Acute prerenal azotemia Is this a current diagnosis for this admission?: Yes (3) Dehydration Is this a current diagnosis for this admission?: Yes Plan: Continue current IV fluid hydration. (4) Hypertension Qualifiers: Hypertension type: essential hypertension Qualified Code(s): I10 - Essential (primary) hypertension Is this a current diagnosis for this admission?: Yes Plan: Patient's baseline blood pressure usually goes up beyond the systolic blood pressure of 140 and 150s on her usual state of health so her current blood pressure is relatively low for her. Agree with holding her blood pressure medications but I will order it anyway just in case her blood pressure starts to go up. I wrote parameters and went to give her blood pressure medications. I also instructed the patient not to take her medications on her own because she did not today. Discuss the negative consequences in her kidney function if her blood pressure goes down too low and she understood. (5) Pneumonia Qualifiers: Pneumonia type: due to unspecified organism Laterality: left Lung location: lower lobe of lung Qualified Code(s): J18.1 - Lobar pneumonia, unspecified organism Is this a current diagnosis for this admission?: Yes (6) Hyponatremia Is this a current diagnosis for this admission?: Yes Plan: Be due to volume depletion. Continue normal saline. (7) Hypermagnesemia Is this a current diagnosis for this admission?: Yes Plan: Patient was given IV magnesium in the emergency room. This could be also due to her acute worsening of kidney function. (8) Hyperglycemia Is this a current diagnosis for this admission?: Yes Plan: Possibly due to IV Solu-Medrol. Patient has not been known to be diabetic in the past. - Notes Notes: Thank you very much for this consultation. I will follow the patient with you. - Time Time Spent: Greater than 70 Minutes
[2018-02-15 19:00] LABS: APPEARANCE,URINE CLEAR; BILIRUBIN,URINE NEGATIVE (NEGATIVE); COLOR,URINE STRAW; GLUCOSE, URINE >=500 mg/dL (NEGATIVE); KETONES,URINE NEGATIVE (NEGATIVE); LEUKOCYTE ESTERASE,URINE NEGATIVE (NEGATIVE); NITRITE,URINE NEGATIVE (NEGATIVE); PROTEIN,URINE NEGATIVE (NEGATIVE); UROBILINOGEN,URINE NEGATIVE mg/dL (<2.0)
--- NOTE | 2018-02-15 21:08 | RADIOLOGY REPORT (SQ) ---
EXAM DESCRIPTION: [employer] COMPLETED DATE/TIME: 02/15/2018 8:54 pm REASON FOR STUDY: acute on chronic renal failure COMPARISON: 04/09/2011 TECHNIQUE: Dynamic and static grayscale images acquired of the kidneys and bladder and recorded on P ACS. Additional selected color Doppler and spectral images recorded. LIMITATIONS: None. FINDINGS: RIGHT KIDNEY: 6.4 cm. Increased cortical echogenicity. No solid or suspicious masses. No hydronephrosis. No calcifications. LEFT KIDNEY: 8.1 cm. Increased cortical echogenicity. No solid or suspicious masses. No hydron ephrosis. No calcifications. BLADDER: Not visualized. OTHER: No other significant finding. IMPRESSION: CHRONIC MEDICAL RENAL DISEASE. NO HYDRONEPHROSIS. TECHNICAL DOCUMENTATION: JOB ID: [id number] [employer]- All Rights Reserved Reading location - IP/workstation name: [email or web address]
[2018-02-15] MEDS: GUAIFENESIN 600 MG TABLET.SA PO SCH (21:16)
[2018-02-15] MEDS: ZOLPIDEM TARTRATE 5 MG TABLET PO PRN (22:36)
[2018-02-16] MEDS: IPRATROPIUM/ALBUTEROL 0.5-2.5 MG/3 ML AMPUL NEB SCH ×6 (00:34→20:26)
[2018-02-16] MEDS: INSULIN LISPRO 100 UNIT/ML 3 ML VIAL SUBCUT PRN ×3 (03:21→22:36)
[2018-02-16] MEDS: ASPIRIN 325 MG TABLET PO SCH (04:57)
[2018-02-16] MEDS: HEPARIN SOD (PORCINE) 5,000 UNIT/ML 1 ML SYRINGE SUBCUT SCH ×3 (04:58→22:34)
[2018-02-16] MEDS ORDERED: (PENDING PHARMACY ID) (Atenolol [Tenormin 100 Mg Tablet] 100 MG) PO SCH (05:00)
[2018-02-16] MEDS ORDERED: LOSARTAN POTASSIUM 50 MG TABLET PO SCH (05:00)
[2018-02-16] MEDS ORDERED: HYDROCHLOROTHIAZIDE 12.5 MG CAPSULE PO SCH (05:00)
[2018-02-16] MEDS ORDERED: ATENOLOL 50 MG TABLET PO SCH (05:00)
[2018-02-16] MEDS ORDERED: (PENDING PHARMACY ID) (Losartan/Hydrochlorothiazide [Hyzaar 100-12.5 Tablet] 1 TAB) PO SCH (05:00)
[2018-02-16 05:16] LABS: HEMATOCRIT 32.3 % (36.0-47.0); HEMOGLOBIN 10.5 g/dL (12.0-15.5); MEAN CORPUSCULAR HGB CONC 32.5 g/dL (32.0-36.0); MEAN CORPUSCULAR VOLUME 86 fl (80-97); PLATELET COUNT 384 10^3/uL (150-450); RED BLOOD COUNT 3.75 10^6/uL (3.72-5.28); RED CELL DISTRIBUTION WIDTH 12.5 % (11.5-14.0); WHITE BLOOD COUNT 25.5 10^3/uL (4.0-10.5)
[2018-02-16 05:26] LABS: ANION GAP 12 (5-19); BLOOD UREA NITROGEN 81 mg/dL (7-20); CALCIUM 9.2 mg/dL (8.4-10.2); CARBON DIOXIDE 24 mmol/L (22-30); CHLORIDE 100 mmol/L (98-107); GLUCOSE 220 mg/dL (75-110); PHOSPHORUS 3.5 mg/dL (2.5-4.5); POTASSIUM 4.1 mmol/L (3.6-5.0)
[2018-02-16 05:47] LABS: ABSOLUTE LYMPHOCYTES# (MANUAL) 0.5 10^3/uL (0.5-4.7); ABSOLUTE MONOCYTES # (MANUAL) 1.3 10^3/uL (0.1-1.4); ABSOLUTE NEUTROPHILS# (MANUAL) 23.7 10^3/uL (1.7-8.2); BASOPHILS % (MANUAL) 0 % (0-2); EOSINOPHILS % (MANUAL) 0 % (0-6); LYMPHOCYTES % (MANUAL) 2 % (13-45); MONOCYTES % (MANUAL) 5 % (3-13); SEGMENTED NEUTROPHILS % (MAN) 93 % (42-78); TOTAL CELLS COUNTED 100
[2018-02-16 05:48] LABS: OVALOCYTES SLIGHT; PLATELET COMMENT ADEQUATE; POIKILOCYTOSIS SLIGHT; TOXIC GRANULATION SLIGHT
[2018-02-16] MEDS: GUAIFENESIN 600 MG TABLET.SA PO SCH ×2 (08:57→22:33)
[2018-02-16] MEDS: ACETAMINOPHEN 325 MG TABLET PO PRN ×2 (08:57→13:06)
[2018-02-16] MEDS: NICOTINE 14 MG/24 HR PATCH.TD24 TD SCH (08:58)
[2018-02-16] MEDS: CEFTRIAXONE SODIUM 1,000 MG in DEXTROSE 5%-WATER 50 ML IV SCH (09:01)
[2018-02-16] MEDS: DOXYCYCLINE HYCLATE 100 MG in DEXTROSE 5%-WATER 250 ML IV SCH (09:02)
[2018-02-16] MEDS: NORMAL SALINE 1000 ML 1,000 ML IV PRN ×2 (09:04→22:28)
--- NOTE | 2018-02-16 12:20 | PDOC PROGRESS REPORT ---
Subjective Progress Note for:: 02/16/18 Subjective:: Patient refers that she is doing a lot better when compared to admission. Patient informed about the diagnosis of diabetes and COPD. Again educated about quitting smoking. Review of system All organ systems evaluated and negative except as in subjective All significant diagnostics and laboratories have been reviewed Reason For Visit: ACUTE ON CHRONIC KIDNEY FAILURE,PNEUMONIA Physical Exam Vital Signs: Temp Pulse Resp BP Pulse Ox 98.1 F 76 18 128/59 H 96 02/16/18 03:12 02/16/18 03:12 02/16/18 03:12 02/16/18 03:12 02/16/18 03:12 Intake & Output 02/15/18 02/16/18 02/17/18 06:59 06:59 06:59 Intake Total 125 4400 Output Total 0 800 Balance 125 3600 Weight 50.1 kg 52.3 kg General appearance: PRESENT: no acute distress, cooperative, thin Head exam: PRESENT: atraumatic, normocephalic Eye exam: PRESENT: conjunctiva pink, EOMI, PERRLA Ear exam: PRESENT: normal external ear exam Mouth exam: PRESENT: moist Neck exam: PRESENT: full ROM. ABSENT: JVD, lymphadenopathy, tenderness Respiratory exam: PRESENT: crackles Cardiovascular exam: PRESENT: RRR. ABSENT: diastolic murmur, systolic murmur GI/Abdominal exam: PRESENT: normal bowel sounds, soft. ABSENT: tenderness Extremities exam: PRESENT: full ROM. ABSENT: pedal edema Musculoskeletal exam: PRESENT: ambulatory Neurological exam: PRESENT: alert, awake, oriented to person, oriented to place , oriented to time, oriented to situation, CN II-XII grossly intact Skin exam: PRESENT: intact, normal color Results Laboratory Results: 02/16/18 04:21 02/16/18 04:21 02/15/18 02/16/18 02/16/18 18:40 04:21 04:21 WBC 25.5 H RBC 3.75 Hgb 10.5 L Hct 32.3 L MCV 86 MCH 28.0 MCHC 32.5 RDW 12.5 Plt Count 384 Seg Neutrophils % Not Reportable Lymphocytes % Not Reportable Monocytes % Not Reportable Eosinophils % Not Reportable Basophils % Not Reportable Absolute Neutrophils Not Reportable Absolute Lymphocytes Not Reportable Absolute Monocytes Not Reportable Absolute Eosinophils Not Reportable Absolute Basophils Not Reportable Sodium 136.0 L Potassium 4.1 Chloride 100 Carbon Dioxide 24 Anion Gap 12 BUN 81 H Creatinine 3.72 H Est GFR ( Amer) 15 L Est GFR (Non-Af Amer) 12 L Glucose 220 H Calcium 9.2 Phosphorus 3.5 Urine Color STRAW Urine Appearance CLEAR Urine pH 5.0 Ur Specific [place] 1.010 Urine Protein NEGATIVE Urine Glucose (UA) >=500 H Urine Ketones NEGATIVE Urine Blood NEGATIVE Urine Nitrite NEGATIVE Ur Leukocyte Esterase NEGATIVE Urine WBC (Auto) 1 Urine RBC (Auto) 0 Impressions: Chest X-Ray 02/14/18 21:21 IMPRESSION: 1. COPD. 2. Left pneumonia. Surveillance radiographs to document clearance with treatment recommended. Renal Ultrasound 02/15/18 00:00 IMPRESSION: CHRONIC MEDICAL RENAL DISEASE. NO HYDRONEPHROSIS. Assessment & Plan - Diagnosis (1) Pneumonia Qualifiers: Pneumonia type: due to unspecified organism Laterality: left Lung location: lower lobe of lung Qualified Code(s): J18.1 - Lobar pneumonia, unspecified organism Is this a current diagnosis for this admission?: Yes Plan: She is Rocephin and doxycycline to Levaquin to simplify regimen (2) [id number] kidney injury Qualifiers: Acute renal failure type: unspecified Chronic kidney disease stage: stage 4 (severe) Qualified Code(s): N17.9 - Acute kidney failure, unspecified; N18.4 - Chronic kidney disease, stage 4 (severe); N18.4 - Chronic kidney disease , stage 4 (severe); N18.4 - Chronic kidney disease, stage 4 (severe); N18.4 - Chronic kidney disease, stage 4 (severe) Is this a current diagnosis for this admission?: Yes Plan: Decrease IV fluid rate. Renal sonogram demonstrates chronic disease. Currently being follow-up by renal appreciated (3) COPD (chronic obstructive pulmonary disease) Is this a current diagnosis for this admission?: Yes Plan: Continue DuoNeb's, Mucinex, add Advair (4) Tobacco abuse Is this a current diagnosis for this admission?: Yes Plan: Continue nicotine patch. Patient educated about quitting (5) Diabetes mellitus, new onset Is this a current diagnosis for this admission?: Yes Plan: Hemoglobin A1c 6.8. Patient informed. Will continue Humulog sliding scale with bedside glucose before meals and at bedtime. Consult music educator - Time Time Spent with patient: 15-24 minutes Medications reviewed and adjusted accordingly: Yes Anticipated discharge: Home Within: within 72 hours - Inpatient Certification Based on my medical assessment, after consideration of the patient's comorbidities, presenting symptoms, or acuity I expect that the services needed warrant INPATIENT care.: Yes I certify that my determination is in accordance with my understanding of Medicare's requirements for reasonable and necessary INPATIENT services [42 CFR 412.3e].: Yes Medical Necessity: Need Close Monitoring Due to Risk of Patient Decompensation, Need For IV Fluids, Need for Nebulizer Therapy and Monitoring of Response, Need for IV Antibiotics
--- NOTE | 2018-02-16 12:31 | EKG REPORT ---
SEVERITY:- ABNORMAL ECG - SINUS RHYTHM LVH W/ REPOL ABNORMALITIES, POSSIBLE ISCHEMIA : Confirmed by: Ricardo Jacobs MD 16-Feb-2018 12:31:13
[2018-02-16] MEDS ORDERED: BUTALB/ACETAMINOPHEN/CAFFEINE 1 TAB EACH PO PRN (16:17)
[2018-02-16] MEDS ORDERED: OXYCODONE-ACETAMINOPHEN 5-325 MG TABLET PO PRN (16:17)
--- NOTE | 2018-02-16 19:22 | PDOC PROGRESS REPORT ---
Subjective Progress Note for:: 02/16/18 Subjective:: Patient looks a little bit better and she feels a little bit better. Her appetite is still poor and she is not really drinking much fluids. I encouraged her to drink a little bit more fluids. Her blood sugars are starting to go down but still elevated and she was found to have elevated A1c. She is making urine . Reason For Visit: ACUTE ON CHRONIC KIDNEY FAILURE,PNEUMONIA Physical Exam Vital Signs: Temp Pulse Resp BP Pulse Ox 98.3 F 64 16 121/70 99 02/16/18 15:24 02/16/18 16:16 02/16/18 16:16 02/16/18 15:24 02/16/18 16:16 Intake & Output 02/15/18 02/16/18 02/17/18 06:59 06:59 06:59 Intake Total 125 4400 1400 Output Total 0 800 Balance 125 3600 1400 Weight 50.1 kg 52.3 kg Exam: General appearance: PRESENT: no acute distress, cooperative, well-developed, well-nourished Head exam: PRESENT: atraumatic, normocephalic Eye exam: PRESENT: conjunctiva pink, PERRLA. ABSENT: scleral icterus Neck exam: ABSENT: JVD Respiratory exam: PRESENT: Positive rhonchi and minimal crackles in the bases. ABSENT: crackles, rales, rhonchi, unlabored, wheezes Cardiovascular exam: PRESENT: Regular rate rhythm -+S1, +S2. ABSENT: diastolic murmur, systolic murmur GI/Abdominal exam: PRESENT: normal bowel sounds, soft. ABSENT: guarding, mass, tenderness Extremities exam: ABSENT: No edema Neurological exam: PRESENT: alert, awake, oriented to person, place and time. Skin exam: PRESENT: dry, warm, Results Laboratory Results: 02/16/18 04:21 02/16/18 04:21 02/16/18 02/16/18 04:21 04:21 WBC 25.5 H RBC 3.75 Hgb 10.5 L Hct 32.3 L MCV 86 MCH 28.0 MCHC 32.5 RDW 12.5 Plt Count 384 Seg Neutrophils % Not Reportable Lymphocytes % Not Reportable Monocytes % Not Reportable Eosinophils % Not Reportable Basophils % Not Reportable Absolute Neutrophils Not Reportable Absolute Lymphocytes Not Reportable Absolute Monocytes Not Reportable Absolute Eosinophils Not Reportable Absolute Basophils Not Reportable Sodium 136.0 L Potassium 4.1 Chloride 100 Carbon Dioxide 24 Anion Gap 12 BUN 81 H Creatinine 3.72 H Est GFR ( Amer) 15 L Est GFR (Non-Af Amer) 12 L Glucose 220 H Calcium 9.2 Phosphorus 3.5 Impressions: Chest X-Ray 02/14/18 21:21 IMPRESSION: 1. COPD. 2. Left pneumonia. Surveillance radiographs to document clearance with treatment recommended. Renal Ultrasound 02/15/18 00:00 IMPRESSION: CHRONIC MEDICAL RENAL DISEASE. NO HYDRONEPHROSIS. Assessment & Plan - Diagnosis (1) [id number] kidney injury Qualifiers: Acute renal failure type: unspecified Chronic kidney disease stage: stage 4 (severe) Qualified Code(s): N17.9 - Acute kidney failure, unspecified; N18.4 - Chronic kidney disease, stage 4 (severe); N18.4 - Chronic kidney disease , stage 4 (severe); N18.4 - Chronic kidney disease, stage 4 (severe); N18.4 - Chronic kidney disease, stage 4 (severe) Is this a current diagnosis for this admission?: Yes Plan: Kidney function is is slowly improving with IV fluid hydration. Is nonoliguric. Continue IV fluid hydration at this point. (2) Acute prerenal azotemia Is this a current diagnosis for this admission?: Yes (3) Dehydration Is this a current diagnosis for this admission?: Yes (4) Hypertension Qualifiers: Hypertension type: essential hypertension Qualified Code(s): I10 - Essential (primary) hypertension Is this a current diagnosis for this admission?: Yes Plan: Currently controlled. May hold the patient's lisinopril/hydrochlorothiazide since her blood pressure is controlled. Agree with continuation of atenolol. (5) Pneumonia Qualifiers: Pneumonia type: due to unspecified organism Laterality: left Lung location: lower lobe of lung Qualified Code(s): J18.1 - Lobar pneumonia, unspecified organism Is this a current diagnosis for this admission?: Yes (6) Hyponatremia Is this a current diagnosis for this admission?: Yes Plan: Resolving. (7) Hypermagnesemia Is this a current diagnosis for this admission?: Yes (8) Hyperglycemia Is this a current diagnosis for this admission?: Yes Plan: Hemoglobin A1c is within a diabetic range. Patient could have had developed diabetes recently. Defer management to hospitalist. - Time Time with patient: 15-25 minutes
[2018-02-16] MEDS: FLUTICASONE/SALMETEROL DISKUS 250-50 MCG/DOSE IH SCH (22:30)
[2018-02-16] MEDS: ZOLPIDEM TARTRATE 5 MG TABLET PO PRN (22:33)
[2018-02-17] MEDS: IPRATROPIUM/ALBUTEROL 0.5-2.5 MG/3 ML AMPUL NEB SCH ×3 (00:04→08:40)
[2018-02-17] MEDS: ASPIRIN 325 MG TABLET PO SCH (04:55)
[2018-02-17] MEDS: ATENOLOL 50 MG TABLET PO SCH (04:56)
[2018-02-17] MEDS: HEPARIN SOD (PORCINE) 5,000 UNIT/ML 1 ML SYRINGE SUBCUT SCH ×3 (04:56→21:21)
[2018-02-17 06:07] LABS: ABSOLUTE BASOPHILS # (AUTO) 0.1 10^3/uL (0.0-0.2); ABSOLUTE EOSINOPHILS # (AUTO) 0.1 10^3/uL (0.0-0.6); ABSOLUTE LYMPHOCYTES (AUTO) 1.1 10^3/uL (0.5-4.7); ABSOLUTE MONOCYTES (AUTO) 1.2 10^3/uL (0.1-1.4); ABSOLUTE NEUT (AUTO) 16.1 10^3/uL (1.7-8.2); BASOPHILS % (AUTO) 0.4 % (0-2); EOSINOPHILS % (AUTO) 0.4 % (0-6); HEMATOCRIT 31.9 % (36.0-47.0); HEMOGLOBIN 10.4 g/dL (12.0-15.5); LYMPHOCYTES % (AUTO) 5.7 % (13-45); MEAN CORPUSCULAR HGB CONC 32.6 g/dL (32.0-36.0); MEAN CORPUSCULAR VOLUME 86 fl (80-97); MONOCYTES % (AUTO) 6.6 % (3-13); PLATELET COUNT 359 10^3/uL (150-450); RED CELL DISTRIBUTION WIDTH 12.8 % (11.5-14.0); SEGMENTED NEUTROPHILS % (AUTO) 86.9 % (42-78); TOTAL CELLS COUNTED % (AUTO) 100 %; WHITE BLOOD COUNT 18.5 10^3/uL (4.0-10.5)
[2018-02-17 06:32] LABS: ANION GAP 14 (5-19); BLOOD UREA NITROGEN 56 mg/dL (7-20); CALCIUM 8.8 mg/dL (8.4-10.2); CARBON DIOXIDE 20 mmol/L (22-30); CHLORIDE 105 mmol/L (98-107); GLUCOSE 111 mg/dL (75-110); PHOSPHORUS 3.3 mg/dL (2.5-4.5); POTASSIUM 4.5 mmol/L (3.6-5.0); SODIUM 138.8 mmol/L (137-145)
[2018-02-17] MEDS ORDERED: NORMAL SALINE 1000 ML 1,000 ML IV PRN (07:30)
[2018-02-17] MEDS ORDERED: IPRATROPIUM/ALBUTEROL 0.5-2.5 MG/3 ML AMPUL NEB PRN (09:03)
[2018-02-17] MEDS: NICOTINE 14 MG/24 HR PATCH.TD24 TD SCH (09:54)
[2018-02-17] MEDS: FLUTICASONE/SALMETEROL DISKUS 250-50 MCG/DOSE IH SCH ×2 (09:54→21:21)
[2018-02-17] MEDS: GUAIFENESIN 600 MG TABLET.SA PO SCH ×2 (09:54→21:20)
[2018-02-17] MEDS ORDERED: LEVOFLOXACIN 750 MG/D5W RTU 750 MG/150 ML RTUPB IV SCH (10:00)
[2018-02-17] MEDS: INSULIN LISPRO 100 UNIT/ML 3 ML VIAL SUBCUT PRN ×2 (14:29→22:25)
--- NOTE | 2018-02-17 16:50 | PDOC PROGRESS REPORT ---
Subjective Progress Note for:: 02/17/18 Subjective:: Patient relates that she still having poor appetite and have not been able to sleep well. Her breathing continues getting better Review of system All organ systems evaluated and negative except as in subjective All significant diagnostics and laboratories have been reviewed Reason For Visit: ACUTE ON CHRONIC KIDNEY FAILURE,PNEUMONIA Physical Exam Vital Signs: Temp Pulse Resp BP Pulse Ox 98.7 F 84 16 137/83 H 92 02/17/18 03:20 02/17/18 04:00 02/17/18 04:00 02/17/18 03:20 02/17/18 04:00 Intake & Output 02/16/18 02/17/18 02/18/18 06:59 06:59 06:59 Intake Total 4400 2700 Output Total 800 Balance 3600 2700 Weight 52.3 kg 53.2 kg General appearance: PRESENT: no acute distress, cooperative, thin Head exam: PRESENT: atraumatic, normocephalic Eye exam: PRESENT: conjunctiva pink, EOMI, PERRLA Ear exam: PRESENT: normal external ear exam Mouth exam: PRESENT: moist Neck exam: PRESENT: full ROM. ABSENT: JVD, lymphadenopathy, tenderness Respiratory exam: PRESENT: other - Adequate movement of air with soft basilar crackles Cardiovascular exam: PRESENT: RRR. ABSENT: diastolic murmur, systolic murmur Vascular exam: PRESENT: normal capillary refill GI/Abdominal exam: PRESENT: normal bowel sounds, soft. ABSENT: tenderness Extremities exam: PRESENT: full ROM, pedal edema Musculoskeletal exam: PRESENT: ambulatory Neurological exam: PRESENT: alert, awake, oriented to person, oriented to place , oriented to time, oriented to situation, CN II-XII grossly intact Psychiatric exam: PRESENT: appropriate affect, normal mood Skin exam: PRESENT: intact, normal color Results Laboratory Results: 02/17/18 05:16 02/17/18 05:16 02/17/18 02/17/18 05:16 05:16 WBC 18.5 H RBC 3.70 L Hgb 10.4 L Hct 31.9 L MCV 86 MCH 28.0 MCHC 32.6 RDW 12.8 Plt Count 359 Seg Neutrophils % 86.9 H Lymphocytes % 5.7 L Monocytes % 6.6 Eosinophils % 0.4 Basophils % 0.4 Absolute Neutrophils 16.1 H Absolute Lymphocytes 1.1 Absolute Monocytes 1.2 Absolute Eosinophils 0.1 Absolute Basophils 0.1 Sodium 138.8 Potassium 4.5 Chloride 105 Carbon Dioxide 20 L Anion Gap 14 BUN 56 H Creatinine 2.79 H Est GFR ( Amer) 21 L Est GFR (Non-Af Amer) 17 L Glucose 111 H Calcium 8.8 Phosphorus 3.3 02/17/18 05:16 NT-Pro-B Natriuret Pep 3260 H Impressions: Chest X-Ray 02/14/18 21:21 IMPRESSION: 1. COPD. 2. Left pneumonia. Surveillance radiographs to document clearance with treatment recommended. Renal Ultrasound 02/15/18 00:00 IMPRESSION: CHRONIC MEDICAL RENAL DISEASE. NO HYDRONEPHROSIS. Assessment & Plan - Diagnosis (1) Pneumonia Qualifiers: Pneumonia type: due to unspecified organism Laterality: left Lung location: lower lobe of lung Qualified Code(s): J18.1 - Lobar pneumonia, unspecified organism Is this a current diagnosis for this admission?: Yes Plan: Transition to oral Levaquin. (2) Bbnly-rc-iwzyilv kidney injury Qualifiers: Acute renal failure type: unspecified Chronic kidney disease stage: stage 4 (severe) Qualified Code(s): N17.9 - Acute kidney failure, unspecified; N18.4 - Chronic kidney disease, stage 4 (severe); N18.4 - Chronic kidney disease , stage 4 (severe); N18.4 - Chronic kidney disease, stage 4 (severe); N18.4 - Chronic kidney disease, stage 4 (severe) Is this a current diagnosis for this admission?: Yes Plan: Decrease IV fluid rate. Renal sonogram demonstrates chronic disease. Currently being follow-up by renal appreciated (3) COPD (chronic obstructive pulmonary disease) Is this a current diagnosis for this admission?: Yes Plan: Continue Advair, Mucinex.Change DuoNeb to as needed. Leave albuterol neb frequency as is and as needed (4) Tobacco abuse Is this a current diagnosis for this admission?: Yes Plan: Continue nicotine patch. Patient educated about quitting (5) Diabetes mellitus, new onset Is this a current diagnosis for this admission?: Yes Plan: Hemoglobin A1c 6.8. Patient informed. Will continue Humulog sliding scale with bedside glucose before meals and at bedtime. para educator consulted. Recommend metformin on discharge - Time Time Spent with patient: 15-24 minutes Medications reviewed and adjusted accordingly: Yes Anticipated discharge: Home Within: within 48 hours - Inpatient Certification Based on my medical assessment, after consideration of the patient's comorbidities, presenting symptoms, or acuity I expect that the services needed warrant INPATIENT care.: Yes I certify that my determination is in accordance with my understanding of Medicare's requirements for reasonable and necessary INPATIENT services [42 CFR 412.3e].: Yes Medical Necessity: Need Close Monitoring Due to Risk of Patient Decompensation, Need For IV Fluids, Need for Nebulizer Therapy and Monitoring of Response
--- NOTE | 2018-02-17 19:52 | PDOC PROGRESS REPORT ---
Subjective Progress Note for:: 02/17/18 Subjective:: Patient appears to be better and she also reports that she is feeling much better. She still coughs a little bit but her breathing is improved. She is actually asking when she is going to go home. No new complaints. Reason For Visit: ACUTE ON CHRONIC KIDNEY FAILURE,PNEUMONIA Physical Exam Vital Signs: Temp Pulse Resp BP Pulse Ox 98.4 F 76 16 150/82 H 94 02/17/18 16:15 02/17/18 18:32 02/17/18 18:32 02/17/18 16:15 02/17/18 16:15 Intake & Output 02/16/18 02/17/18 02/18/18 06:59 06:59 06:59 Intake Total 4400 2700 1372 Output Total 800 Balance 3600 2700 1372 Weight 52.3 kg 53.2 kg Exam: General appearance: PRESENT: no acute distress, cooperative, well-developed, well-nourished Head exam: PRESENT: atraumatic, normocephalic Eye exam: PRESENT: conjunctiva pink, PERRLA. ABSENT: scleral icterus Neck exam: ABSENT: JVD Respiratory exam: PRESENT: Diminished breath sounds. Mild left base crackles ABSENT: Rhonchi, unlabored, wheezes Cardiovascular exam: PRESENT: Regular rate rhythm -+S1, +S2. ABSENT: diastolic murmur, systolic murmur GI/Abdominal exam: PRESENT: normal bowel sounds, soft. ABSENT: guarding, mass, tenderness Extremities exam: ABSENT: No edema Neurological exam: PRESENT: alert, awake, oriented to person, place and time. Skin exam: PRESENT: dry, warm, Results Laboratory Results: 02/17/18 05:16 02/17/18 05:16 02/17/18 02/17/18 05:16 05:16 WBC 18.5 H RBC 3.70 L Hgb 10.4 L Hct 31.9 L MCV 86 MCH 28.0 MCHC 32.6 RDW 12.8 Plt Count 359 Seg Neutrophils % 86.9 H Lymphocytes % 5.7 L Monocytes % 6.6 Eosinophils % 0.4 Basophils % 0.4 Absolute Neutrophils 16.1 H Absolute Lymphocytes 1.1 Absolute Monocytes 1.2 Absolute Eosinophils 0.1 Absolute Basophils 0.1 Sodium 138.8 Potassium 4.5 Chloride 105 Carbon Dioxide 20 L Anion Gap 14 BUN 56 H Creatinine 2.79 H Est GFR ( Amer) 21 L Est GFR (Non-Af Amer) 17 L Glucose 111 H Calcium 8.8 Phosphorus 3.3 02/17/18 05:16 NT-Pro-B Natriuret Pep 3260 H Impressions: Chest X-Ray 02/14/18 21:21 IMPRESSION: 1. COPD. 2. Left pneumonia. Surveillance radiographs to document clearance with treatment recommended. Renal Ultrasound 02/15/18 00:00 IMPRESSION: CHRONIC MEDICAL RENAL DISEASE. NO HYDRONEPHROSIS. Assessment & Plan - Diagnosis (1) Fketo-as-ngzxqwr kidney injury Qualifiers: Acute renal failure type: unspecified Chronic kidney disease stage: stage 4 (severe) Qualified Code(s): N17.9 - Acute kidney failure, unspecified; N18.4 - Chronic kidney disease, stage 4 (severe); N18.4 - Chronic kidney disease , stage 4 (severe); N18.4 - Chronic kidney disease, stage 4 (severe); N18.4 - Chronic kidney disease, stage 4 (severe) Is this a current diagnosis for this admission?: Yes Plan: Kidney function is improved and it is almost at baseline kidney function. (2) Acute prerenal azotemia Is this a current diagnosis for this admission?: Yes (3) Dehydration Is this a current diagnosis for this admission?: Yes Plan: Resolved. (4) Hypertension Qualifiers: Hypertension type: essential hypertension Qualified Code(s): I10 - Essential (primary) hypertension Is this a current diagnosis for this admission?: Yes Plan: Currently controlled. May resume patient's losartan HCTZ in the next 24-48 hours if her blood pressure starts to go up. Continue atenolol. (5) Pneumonia Qualifiers: Pneumonia type: due to unspecified organism Laterality: left Lung location: lower lobe of lung Qualified Code(s): J18.1 - Lobar pneumonia, unspecified organism Is this a current diagnosis for this admission?: Yes (6) Hyponatremia Is this a current diagnosis for this admission?: Yes Plan: Resolved. (7) Hypermagnesemia Is this a current diagnosis for this admission?: Yes (8) Hyperglycemia Is this a current diagnosis for this admission?: Yes Plan: Hemoglobin A1c is within a diabetic range. Patient could have had developed diabetes recently. Defer management to hospitalist. - Notes Notes: From nephrology standpoint I think the patient can be discharged home if she continues to improve well clinically. - Time Time with patient: 15-25 minutes
[2018-02-17] MEDS ORDERED: OLANZAPINE 2.5 MG TABLET PO SCH (22:00)
[2018-02-17] MEDS: ZOLPIDEM TARTRATE 5 MG TABLET PO PRN (22:26)
[2018-02-18] MEDS: ATENOLOL 50 MG TABLET PO SCH (05:52)
[2018-02-18] MEDS: ASPIRIN 325 MG TABLET PO SCH (05:52)
[2018-02-18] MEDS: HEPARIN SOD (PORCINE) 5,000 UNIT/ML 1 ML SYRINGE SUBCUT SCH ×2 (05:53→14:26)
[2018-02-18] MEDS: FLUTICASONE/SALMETEROL DISKUS 250-50 MCG/DOSE IH SCH (09:18)
[2018-02-18] MEDS: GUAIFENESIN 600 MG TABLET.SA PO SCH (09:18)
[2018-02-18] MEDS: NICOTINE 14 MG/24 HR PATCH.TD24 TD SCH (09:18)
[2018-02-18 12:22] VITALS: BP 150/81
[2018-02-18 14:49] LABS: ANION GAP 14 (5-19); BLOOD UREA NITROGEN 35 mg/dL (7-20); CALCIUM 8.8 mg/dL (8.4-10.2); CARBON DIOXIDE 19 mmol/L (22-30); CHLORIDE 107 mmol/L (98-107); GLUCOSE 149 mg/dL (75-110); PHOSPHORUS 3.2 mg/dL (2.5-4.5); POTASSIUM 4.6 mmol/L (3.6-5.0); SODIUM 140.2 mmol/L (137-145)
--- NOTE | 2018-02-18 15:18 | PDOC PROGRESS REPORT ---
Subjective Progress Note for:: 02/18/18 Subjective:: 63-year-old female with past medical history of Chronic kidney disease stage IV secondary to hypertensive nephrosclerosis Hypertension Vitamin D deficiency Tobacco dependence She presented to the hospital on February 15 with a two-week history of productive cough shortness of breath and wheezing. Her p.o. intake was poor and she also reported nausea and vomiting that started 3 days prior to admission. She presented to the emergency room and was found to have a BUN of 109 and creatinine of 5.22. Chest x-ray showed left lower lobe infiltrate. She was started on IV fluids steroids and antibiotics. The patient was diagnosed with pneumonia, COPD exacerbation and diabetes on this admission. Reason For Visit: ACUTE ON CHRONIC KIDNEY FAILURE,PNEUMONIA Physical Exam Vital Signs: Temp Pulse Resp BP Pulse Ox 99.6 F 70 17 145/85 H 100 02/18/18 07:22 02/18/18 07:22 02/18/18 07:22 02/18/18 07:22 02/18/18 07:22 Intake & Output 02/17/18 02/18/18 02/19/18 06:59 06:59 06:59 Intake Total 2700 2872 Balance 2700 2872 Weight 53.2 kg 54.6 kg General appearance: PRESENT: no acute distress Head exam: PRESENT: normocephalic Ear exam: PRESENT: normal external ear exam Mouth exam: PRESENT: neck supple Respiratory exam: PRESENT: rhonchi, symmetrical Cardiovascular exam: PRESENT: RRR GI/Abdominal exam: PRESENT: normal bowel sounds, soft. ABSENT: tenderness Rectal exam: PRESENT: deferred Neurological exam: PRESENT: alert, awake, oriented to person, oriented to place Results Laboratory Results: 02/17/18 05:16 02/17/18 05:16 02/17/18 05:16 NT-Pro-B Natriuret Pep 3260 H Impressions: Chest X-Ray 02/14/18 21:21 IMPRESSION: 1. COPD. 2. Left pneumonia. Surveillance radiographs to document clearance with treatment recommended. Renal Ultrasound 02/15/18 00:00 IMPRESSION: CHRONIC MEDICAL RENAL DISEASE. NO HYDRONEPHROSIS. Assessment & Plan - Diagnosis (1) COPD exacerbation Is this a current diagnosis for this admission?: Yes Plan: Improved with treatment (2) Hypomagnesemia Is this a current diagnosis for this admission?: Yes Plan: replete (3) Poxwx-ul-dvdaaki kidney injury Qualifiers: Acute renal failure type: unspecified Chronic kidney disease stage: stage 4 (severe) Qualified Code(s): N17.9 - Acute kidney failure, unspecified; N18.4 - Chronic kidney disease, stage 4 (severe); N18.4 - Chronic kidney disease , stage 4 (severe); N18.4 - Chronic kidney disease, stage 4 (severe); N18.4 - Chronic kidney disease, stage 4 (severe) Is this a current diagnosis for this admission?: Yes Plan: Improved with IV fluids (4) Dehydration Is this a current diagnosis for this admission?: Yes Plan: resolved (5) Diabetes mellitus, new onset Is this a current diagnosis for this admission?: Yes Plan: Diet control. Aircraft Body Repairer consult. Close PCP follow up (6) Shortness of breath Is this a current diagnosis for this admission?: Yes (7) Tobacco abuse Is this a current diagnosis for this admission?: Yes - Time Time Spent with patient: 35 or more minutes - Plan Summary Plan Summary: Patient is being discharged home. Please see discharge summary for details of the plan of care.
--- NOTE | 2018-02-18 15:25 | PDOC DISCHARGE SUMMARY ---
General - Admit/Disc Date/PCP Admission Date/Primary Care Provider: 02/15/18 01:25 Needs to establish PCP. Gripper Machine Operator: DR. Juarez Discharge Date: 02/18/18 - Discharge Diagnosis (1) COPD exacerbation Is this a current diagnosis for this admission?: Yes (2) Hypomagnesemia Is this a current diagnosis for this admission?: Yes (3) Xebai-yk-nxhlgbz kidney injury Is this a current diagnosis for this admission?: Yes (4) Dehydration Is this a current diagnosis for this admission?: Yes (5) Diabetes mellitus, new onset Is this a current diagnosis for this admission?: Yes (6) Shortness of breath Is this a current diagnosis for this admission?: Yes (7) Tobacco abuse Is this a current diagnosis for this admission?: Yes (8) Pneumonia Is this a current diagnosis for this admission?: Yes Summary: Left lower lobe, likely gram positive bacteria. - Additional Information Resuscitation Status: Full Code Discharge Diet: Diabetic Discharge Activity: Activity As Tolerated, Balance Activity w/Rest, Bedrest Prescriptions: Levofloxacin [Levaquin 750 mg Tablet] 750 mg PO Q2DAYS 7 Days #4 tablet Albuterol Sulfate [Ventolin 0.083% Neb 2.5 mg/3 mL Ampul] 2.5 mg NEB Q4HP PRN 30 Days #1 vial.neb PRN Reason: Fluticasone/Salmeterol [Advair 250-50 Diskus 14 Dose/Diskus] 1 inh IH Q12 30 Days #1 inhaler Magnesium Oxide 400 mg PO DAILY 15 Days #15 tablet Nicotine [Nicoderm 14 mg/24 Hr Transdermal Patch] 1 each TD DAILY 90 Days #90 patch.[email or web address] Home Medications: Aspirin [Aspirin 325 mg Tablet] 325 mg PO DAILY@49902/15/18 Atenolol [Tenormin 100 mg Tablet] 100 mg PO DAILY@49902/15/18 Ergocalciferol (Vitamin D2) [Drisdol 50,000 unit (1.25MG) Capsule] 50,000 unit PO SA@0802/15/18 Losartan/Hydrochlorothiazide [Hyzaar 100-12.5 Tablet] 1 tab PO DAILY@499 Albuterol Sulfate [Ventolin 0.083% Neb 2.5 mg/3 mL Ampul] 2.5 mg NEB Q4HP PRN 30 Days #1 vial.neb 02/18/18 Fluticasone/Salmeterol [Advair 250-50 Diskus 14 Dose/Diskus] 1 inh IH Q12 30 Days #1 inhaler 02/18/18 Levofloxacin [Levaquin 750 mg Tablet] 750 mg PO Q2DAYS 7 Days #4 tablet Magnesium Oxide 400 mg PO DAILY 15 Days #15 tablet 02/18/18 Nicotine [Nicoderm 14 mg/24 Hr Transdermal Patch] 1 each TD DAILY 90 Days #90 patch.td24 02/18/18 History of Present Illness History of Present Illness: 63-year-old female with past medical history of Chronic kidney disease stage IV secondary to hypertensive nephrosclerosis Hypertension Vitamin D deficiency Tobacco dependence She presented to the hospital on February 15 with a two-week history of productive cough shortness of breath and wheezing. Her p.o. intake was poor and she also reported nausea and vomiting that started 3 days prior to admission. She presented to the emergency room and was found to have a BUN of 109 and creatinine of 5.22. Chest x-ray showed left lower lobe infiltrate. She was started on IV fluids steroids and antibiotics. The patient was diagnosed with left lower lobe pneumonia COPD exacerbation and diabetes on this admission. Creatinine today is 2.36. Dyspnea has improved. She plans to quit tobacco use. She is to complete a course of levaquin. The patient is stable and ready for discharge home. Hemoglobin A1C is 6.8- she will be managed with diabetic diet and close outpatient follow up. Hospital Course Hospital Course: See above Physical Exam Vital Signs: Temp Pulse Resp BP Pulse Ox 98.9 F 69 17 150/81 H 98 02/18/18 11:19 02/18/18 11:19 02/18/18 11:19 02/18/18 11:19 02/18/18 11:19 Intake & Output 02/17/18 02/18/18 02/19/18 06:59 06:59 06:59 Intake Total 2700 2872 200 Balance 2700 2872 200 Weight 53.2 kg 54.6 kg General appearance: PRESENT: no acute distress Respiratory exam: PRESENT: symmetrical, unlabored Cardiovascular exam: PRESENT: RRR Results Laboratory Results: 02/17/18 05:16 02/18/18 13:50 02/18/18 13:50 Sodium 140.2 Potassium 4.6 Chloride 107 Carbon Dioxide 19 L Anion Gap 14 BUN 35 H Creatinine 2.36 H Est GFR ( Amer) 25 L Est GFR (Non-Af Amer) 21 L Glucose 149 H Calcium 8.8 Phosphorus 3.2 Magnesium 1.6 02/17/18 05:16 NT-Pro-B Natriuret Pep 3260 H Impressions: Chest X-Ray 02/14/18 21:21 IMPRESSION: 1. COPD. 2. Left pneumonia. Surveillance radiographs to document clearance with treatment recommended. Renal Ultrasound 02/15/18 00:00 IMPRESSION: CHRONIC MEDICAL RENAL DISEASE. NO HYDRONEPHROSIS. Qualifiers - * PATIENT BEING DISCHARGED WITH ANY OF THE FOLLOWING DIAGNOSIS: No Plan Time Spent: Greater than 30 Minutes
[2018-02-18] MEDS ORDERED: MAGNESIUM SULFATE/D5W 1 GM/100 ML RTUPB IV SCH (16:00)
[2018-02-19] MEDS ORDERED: LEVOFLOXACIN 750 MG TABLET PO SCH (10:00)
[2018-02-20] MEDS ORDERED: ERGOCALCIFEROL (VITAMIN D2) 50000 UNIT (1.25 MG) CAPSULE PO SCH (08:00)
== END 2018-02-18 16:20 | disposition home or self-care (01) | DRG 190 ==
LOC: ER 21:07 → EH 02-15 01:25 → 3W 02-15 03:21
PROVIDERS: ADMIT Internal Medicine; ATTEND Internal Medicine
DX: J44.1 Chronic obstructive pulmonary disease with (acute) exacerbation (principal); J15.9 Unspecified bacterial pneumonia; N17.9 Acute kidney failure, unspecified; N18.4 Chronic kidney disease, stage 4 (severe); E86.0 Dehydration; E83.42 Hypomagnesemia; E11.65 Type 2 diabetes mellitus with hyperglycemia; I12.9 Hypertensive chronic kidney disease with stage 1 through stage 4 chronic kidney disease, or unspecified chronic kidney disease; E55.9 Vitamin D deficiency, unspecified; F17.210 Nicotine dependence, cigarettes, uncomplicated; E11.22 Type 2 diabetes mellitus with diabetic chronic kidney disease; Z82.49 Family history of ischemic heart disease and other diseases of the circulatory system; Z83.3 Family history of diabetes mellitus; D63.1 Anemia in chronic kidney disease; Z79.82 Long term (current) use of aspirin
CPT/HCPCS: 36415; 71045; 76775; 80048; 81001; 82803; 82962; 83036; 83735; 83880; 84100; 85025; 87040; 93005; 93010; 94640; 96365; 96375; 99285; 99406; J0696; J1644; J1815; J1956; J2920; J3475; J3490; J7030; J7060; J7620

== ENCOUNTER → 2018-03-24 | Outpatient (CLI) | payer MEDICARE ==
[2018-03-24 14:14] LABS: ANION GAP 15 (5-19); BLOOD UREA NITROGEN 47 mg/dL (7-20); CALCIUM 9.4 mg/dL (8.4-10.2); CARBON DIOXIDE 27 mmol/L (22-30); CHLORIDE 99 mmol/L (98-107); GLUCOSE 185 mg/dL (75-110); POTASSIUM 4.6 mmol/L (3.6-5.0); SODIUM 140.7 mmol/L (137-145)
[2018-03-25 10:38] LABS: CREATININE URINE 143.4 mg/dL (Not Estab.); MICROALBUMIN URINE 164.7 ug/mL (Not Estab.)
== END ==
LOC: OD 13:22
PROVIDERS: ATTEND Internal Medicine Nephrology
DX: N18.4 Chronic kidney disease, stage 4 (severe) (principal); R80.0 Isolated proteinuria; E55.9 Vitamin D deficiency, unspecified; N25.81 Secondary hyperparathyroidism of renal origin
CPT/HCPCS: 36415; 80048; 82043; 82306; 82570; 83970

== ENCOUNTER → 2018-04-05 | Outpatient (CLI) | payer MEDICARE ==
[2018-04-05 14:51] LABS: ABSOLUTE BASOPHILS # (AUTO) 0.1 10^3/uL (0.0-0.2); ABSOLUTE EOSINOPHILS # (AUTO) 0.2 10^3/uL (0.0-0.6); ABSOLUTE LYMPHOCYTES (AUTO) 1.6 10^3/uL (0.5-4.7); ABSOLUTE MONOCYTES (AUTO) 0.4 10^3/uL (0.1-1.4); ABSOLUTE NEUT (AUTO) 4.6 10^3/uL (1.7-8.2); EOSINOPHILS % (AUTO) 2.6 % (0-6); HEMATOCRIT 33.6 % (36.0-47.0); HEMOGLOBIN 11.3 g/dL (12.0-15.5); LYMPHOCYTES % (AUTO) 23.1 % (13-45); MEAN CORPUSCULAR HEMOGLOBIN 29.2 pg (27.0-33.4); MEAN CORPUSCULAR HGB CONC 33.7 g/dL (32.0-36.0); MEAN CORPUSCULAR VOLUME 87 fl (80-97); MONOCYTES % (AUTO) 5.8 % (3-13); PLATELET COUNT 293 10^3/uL (150-450); RED BLOOD COUNT 3.88 10^6/uL (3.72-5.28); RED CELL DISTRIBUTION WIDTH 14.3 % (11.5-14.0); SEGMENTED NEUTROPHILS % (AUTO) 67.5 % (42-78); TOTAL CELLS COUNTED % (AUTO) 100 %; WHITE BLOOD COUNT 6.7 10^3/uL (4.0-10.5)
[2018-04-05 14:59] LABS: APPEARANCE,URINE CLEAR; BILIRUBIN,URINE NEGATIVE (NEGATIVE); COLOR,URINE STRAW; GLUCOSE, URINE NEGATIVE (NEGATIVE); KETONES,URINE NEGATIVE (NEGATIVE); LEUKOCYTE ESTERASE,URINE NEGATIVE (NEGATIVE); NITRITE,URINE NEGATIVE (NEGATIVE); PROTEIN,URINE NEGATIVE (NEGATIVE); URINE SPECIFIC GRAVITY 1.012; UROBILINOGEN,URINE NEGATIVE mg/dL (<2.0)
[2018-04-05 15:21] LABS: ANION GAP 11 (5-19); BLOOD UREA NITROGEN 90 mg/dL (7-20); CALCIUM 9.4 mg/dL (8.4-10.2); CARBON DIOXIDE 24 mmol/L (22-30); CHLORIDE 103 mmol/L (98-107); GLUCOSE 129 mg/dL (75-110); POTASSIUM 5.6 mmol/L (3.6-5.0); SODIUM 138.1 mmol/L (137-145)
[2018-04-06 14:53] LABS: CREATININE URINE 61.8 mg/dL (Not Estab.); MICROALBUMIN URINE 17.6 ug/mL (Not Estab.)
== END ==
LOC: OD 14:03
PROVIDERS: ATTEND Internal Medicine Nephrology
DX: N17.9 Acute kidney failure, unspecified (principal); N18.9 Chronic kidney disease, unspecified; R80.0 Isolated proteinuria; R73.03 Prediabetes
CPT/HCPCS: 36415; 80048; 81001; 82043; 82570; 83036; 85025

== ENCOUNTER → 2018-05-05 | Outpatient (CLI) | payer MEDICARE ==
[2018-05-05 18:21] LABS: ABSOLUTE EOSINOPHILS # (AUTO) 0.2 10^3/uL (0.0-0.6); ABSOLUTE LYMPHOCYTES (AUTO) 1.3 10^3/uL (0.5-4.7); ABSOLUTE MONOCYTES (AUTO) 0.4 10^3/uL (0.1-1.4); ABSOLUTE NEUT (AUTO) 3.6 10^3/uL (1.7-8.2); BASOPHILS % (AUTO) 0.8 % (0-2); EOSINOPHILS % (AUTO) 2.7 % (0-6); HEMATOCRIT 35.1 % (36.0-47.0); HEMOGLOBIN 11.6 g/dL (12.0-15.5); LYMPHOCYTES % (AUTO) 23.5 % (13-45); MEAN CORPUSCULAR HEMOGLOBIN 28.9 pg (27.0-33.4); MEAN CORPUSCULAR VOLUME 88 fl (80-97); PLATELET COUNT 228 10^3/uL (150-450); RED BLOOD COUNT 4.01 10^6/uL (3.72-5.28); RED CELL DISTRIBUTION WIDTH 14.2 % (11.5-14.0); TOTAL CELLS COUNTED % (AUTO) 100 %; WHITE BLOOD COUNT 5.5 10^3/uL (4.0-10.5)
[2018-05-05 18:37] LABS: ANION GAP 13 (5-19); BLOOD UREA NITROGEN 44 mg/dL (7-20); CALCIUM 9.5 mg/dL (8.4-10.2); CARBON DIOXIDE 24 mmol/L (22-30); CHLORIDE 103 mmol/L (98-107); GLUCOSE 107 mg/dL (75-110); POTASSIUM 5.5 mmol/L (3.6-5.0); SODIUM 140.4 mmol/L (137-145)
[2018-05-05 18:54] LABS: 24 HOUR URINE PROTEIN RESULT 386 mg/day (42-225); URINE PROTEIN 16.4 mg/dL (<12)
[2018-05-05 19:35] LABS: URINE CREATININE 53.3 mg/dL (15-278)
[2018-05-07 09:40] LABS: HEPATITIS C VIRUS AB <0.1 s/co ratio (0.0-0.9)
[2018-05-07 10:16] LABS: HEPATITIS B SURFACE AB QUANT <3.1 mIU/mL (Immunity>9)
== END ==
LOC: OD 16:40
PROVIDERS: ATTEND Internal Medicine Nephrology
DX: I12.0 Hypertensive chronic kidney disease with stage 5 chronic kidney disease or end stage renal disease (principal); N18.5 Chronic kidney disease, stage 5; D63.1 Anemia in chronic kidney disease
CPT/HCPCS: 36415; 80048; 82575; 84100; 84156; 85025; 86317; 86803; 86804

== ENCOUNTER → 2018-05-10 | Outpatient (CLI) | payer MEDICARE | LOC: OD 16:44 | PROVIDERS: ATTEND Internal Medicine Nephrology | DX: E87.5 Hyperkalemia (principal) | CPT/HCPCS: 36415; 84132 ==

== ENCOUNTER → 2018-08-06 | Outpatient (CLI) | payer MEDICARE ==
[2018-08-06 15:46] LABS: ABSOLUTE BASOPHILS # (AUTO) 0.1 10^3/uL (0.0-0.2); ABSOLUTE EOSINOPHILS # (AUTO) 0.2 10^3/uL (0.0-0.6); ABSOLUTE LYMPHOCYTES (AUTO) 2.4 10^3/uL (0.5-4.7); ABSOLUTE MONOCYTES (AUTO) 0.5 10^3/uL (0.1-1.4); ABSOLUTE NEUT (AUTO) 4.2 10^3/uL (1.7-8.2); BASOPHILS % (AUTO) 0.8 % (0-2); EOSINOPHILS % (AUTO) 2.8 % (0-6); HEMATOCRIT 39.3 % (36.0-47.0); MEAN CORPUSCULAR HEMOGLOBIN 29.1 pg (27.0-33.4); MEAN CORPUSCULAR HGB CONC 33.2 g/dL (32.0-36.0); MEAN CORPUSCULAR VOLUME 88 fl (80-97); MONOCYTES % (AUTO) 7.1 % (3-13); PLATELET COUNT 235 10^3/uL (150-450); RED BLOOD COUNT 4.49 10^6/uL (3.72-5.28); RED CELL DISTRIBUTION WIDTH 13.7 % (11.5-14.0); SEGMENTED NEUTROPHILS % (AUTO) 57.3 % (42-78); TOTAL CELLS COUNTED % (AUTO) 100 %; WHITE BLOOD COUNT 7.4 10^3/uL (4.0-10.5)
[2018-08-06 16:01] LABS: UR PRO/CREAT RATIO RESULT 0.2 mg/mg (0.0-0.2); URINE CREATININE 192.8 mg/dL (15-278); URINE PROTEIN 35.1 mg/dL (<12)
[2018-08-06 16:24] LABS: ANION GAP 15 (5-19); BLOOD UREA NITROGEN 50 mg/dL (7-20); CALCIUM 9.6 mg/dL (8.4-10.2); CARBON DIOXIDE 23 mmol/L (22-30); CHLORIDE 102 mmol/L (98-107); GLUCOSE 115 mg/dL (75-110); PHOSPHORUS 5.9 mg/dL (2.5-4.5); POTASSIUM 5.3 mmol/L (3.6-5.0); SODIUM 140.2 mmol/L (137-145)
== END ==
LOC: OD 14:49
PROVIDERS: ATTEND Internal Medicine Nephrology
DX: I12.9 Hypertensive chronic kidney disease with stage 1 through stage 4 chronic kidney disease, or unspecified chronic kidney disease (principal); N18.4 Chronic kidney disease, stage 4 (severe); N18.9 Chronic kidney disease, unspecified; E83.39 Other disorders of phosphorus metabolism
CPT/HCPCS: 36415; 80048; 82570; 84100; 84156; 85025

== ENCOUNTER → 2018-09-06 | Outpatient (CLI) | payer MEDICARE ==
[2018-09-06 16:36] LABS: ALBUMIN 3.9 g/dL (3.5-5.0); ANION GAP 10 (5-19); BLOOD UREA NITROGEN 33 mg/dL (7-20); CALCIUM 9.7 mg/dL (8.4-10.2); CARBON DIOXIDE 25 mmol/L (22-30); CHLORIDE 107 mmol/L (98-107); GLUCOSE 104 mg/dL (75-110); PHOSPHORUS 3.4 mg/dL (2.5-4.5); SODIUM 141.8 mmol/L (137-145)
== END ==
LOC: OD 15:36
PROVIDERS: ATTEND Internal Medicine Nephrology
DX: N18.5 Chronic kidney disease, stage 5 (principal); N25.81 Secondary hyperparathyroidism of renal origin; E83.30 Disorder of phosphorus metabolism, unspecified; E87.5 Hyperkalemia
CPT/HCPCS: 36415; 80048; 82040; 82306; 83970; 84100